=== PATIENT | female | born 1950 | race Caucasian/White ===

== ENCOUNTER 2018-08-16 15:30 | Emergency (ER) | payer BC, MEDICARE ==
[~2018-08-16] VITALS: Ht 154.9 cm; Wt 84.8 kg
[~2018-08-16 15:30] MED LIST: Celebrex50 MG PO; DULO30 PO; Klonopin0.5 MG PO; LEVSOD50; LOSA25 PO; MELA3 PO; PSEU120ER PO
[2018-08-16] MEDS ORDERED: Klonopin0.5 MG PO (16:26)
== END 2018-08-16 16:31 | disposition home or self-care (01) ==
LOC: ER 15:30
DX: Z76.0 Encounter for issue of repeat prescription (principal); Z88.0 Allergy status to penicillin; Z79.899 Other long term (current) drug therapy
CPT/HCPCS: 99281

== ENCOUNTER 2018-08-21 02:24 | Emergency (ER) | payer BC, MEDICARE ==
[~2018-08-21] VITALS: Ht 154.9 cm; Wt 86.2 kg
[2018-08-21] MEDS ORDERED: Dyazide 37.5-21 EACH PO (03:08)
[2018-08-21] MEDS ORDERED: CEPH500 PO (03:15)
== END 2018-08-21 03:31 | disposition home or self-care (01) ==
LOC: ER 02:24
DX: L03.011 Cellulitis of right finger (principal); Z88.0 Allergy status to penicillin; Z88.1 Allergy status to other antibiotic agents; Z88.8 Allergy status to other drugs, medicaments and biological substances; Z79.2 Long term (current) use of antibiotics; Z79.899 Other long term (current) drug therapy
CPT/HCPCS: 99283

== ENCOUNTER 2018-09-05 13:14 | Emergency (ER) | payer MEDICARE, BC ==
[~2018-09-05] VITALS: Ht 154.9 cm; Wt 81.7 kg
[~2018-09-05 13:14] MED LIST changes: +CEPH500 PO; +Dyazide 37.5-21 EACH PO
[2018-09-05] MEDS ORDERED: Ultram50 MG PO (14:12)
== END 2018-09-05 14:20 | disposition home or self-care (01) ==
LOC: ER 13:14
DX: M25.512 Pain in left shoulder (principal); M25.511 Pain in right shoulder; F41.9 Anxiety disorder, unspecified; Z88.0 Allergy status to penicillin; Z88.8 Allergy status to other drugs, medicaments and biological substances; Z79.899 Other long term (current) drug therapy
CPT/HCPCS: 96372; 99283-25; J1885

== ENCOUNTER 2018-11-20 15:26 | Emergency (ER) | payer MEDICARE, BC ==
[~2018-11-20] VITALS: Ht 154.9 cm; Wt 81.7 kg
[~2018-11-20 15:26] MED LIST changes: +Ultram50 MG PO; +Valium5 MG PO
[2018-11-20] MEDS ORDERED: TRAM50 PO (16:39)
== END 2018-11-20 17:06 | disposition home or self-care (01) ==
LOC: ER 15:26
DX: G89.29 Other chronic pain (principal); M54.5 Low back pain; Z88.0 Allergy status to penicillin; Z88.1 Allergy status to other antibiotic agents; Z88.8 Allergy status to other drugs, medicaments and biological substances; Z79.899 Other long term (current) drug therapy; Z79.891 Long term (current) use of opiate analgesic; F41.9 Anxiety disorder, unspecified
CPT/HCPCS: 96372; 99283-25; J1885